=== PATIENT | male | born 1990 | race Caucasian/White ===

== ENCOUNTER 2017-10-02 07:30 | Emergency (ER) | payer OTHER ==
[~2017-10-02] VITALS: Ht 188 cm; Wt 129.9 kg
[~2017-10-02 07:30] MED LIST: ACETAMINOPHEN500 MG PO; BACTRIM,SEPT1 TABLET PO; CIPRO500 MG PO; KEFLEX500 MG PO
[2017-10-02 09:28] LABS: BASOPHIL (%) 0.4 % (0-1); EOSINOPHIL (%) 0.7 % (0-5); EOSINOPHIL COUNT 0.1 K/uL (0-0.3); HEMATOCRIT 40.9 % (38.0-50.0); HEMOGLOBIN 14.4 G/DL (12.5-16.6); IMMATURE GRANULOCYTE (%) 0.7 % (0.0-0.7); LYMPHOCYTE (%) 22.7 % (15-42); LYMPHOCYTE COUNT 1.6 K/uL (1.0-2.8); MCH 30.8 PG (29.0-34.0); MCHC 35.2 G/DL (30.0-36.0); MCV 87.4 FL (86-99); MONOCYTE (%) 6.4 % (3-12); MONOCYTE COUNT 0.5 K/uL (0-0.8); NEUTROPHIL (%) 69.1 % (45-76); PLATELET COUNT 154 K/uL (156-360); RBC DIS.WIDTH-CV 11.9 % (11.8-14.6); RBC DIS.WIDTH-SD 37.9 % (39-53); RED BLOOD COUNT 4.68 M/uL (4.00-5.50); WHITE BLOOD COUNT 7.2 K/uL (4.1-10.2)
[2017-10-02 09:41] LABS: ALBUMIN 4.7 g/dL (3.2-4.8)
[2017-10-02 09:42] LABS: CHLORIDE 104 mEq/L (99-109); POTASSIUM 4.1 mEq/L (3.7-5.4); SODIUM 138 mEq/L (136-147)
[2017-10-02 09:44] LABS: GLUCOSE 106 mg/dL (70-99); TOTAL PROTEIN 7.3 g/dL (6.4-8.3)
[2017-10-02 09:46] LABS: TOTAL BILIRUBIN 0.6 mg/dL (0.0-1.0)
[2017-10-02 09:47] LABS: ALKALINE PHOSPHATASE 72 IU/L (3-129)
[2017-10-02 09:48] LABS: GFR ESTIMATE (CALCULATED) > 59 mL/min/ (58.99-99999)
[2017-10-02 09:49] LABS: AST (GOT) 15 IU/L (2-34); UREA NITROGEN (BUN) 14 mg/dL (9-23)
[2017-10-02 09:50] LABS: ALT (GPT) 31 IU/L (3-49)
[2017-10-02 09:51] LABS: LIPASE 16 U/L (1.0-51.0)
[2017-10-02 10:11] LABS: APPEARANCE CLEAR ((CLEAR)); BILIRUBIN NEGATIVE; BLOOD NEGATIVE; COLOR YELLOW ((YELLOW)); GLUCOSE (STRIP) NEGATIVE; KETONES NEGATIVE; LEUKOCYTES NEGATIVE; NITRITE NEGATIVE; PROTEIN (STRIP) NEGATIVE; SPECIFIC GRAVITY 1.018 (1.000-1.030); UROBILINOGEN 0.2 MG/DL (0.2-1.0)
[2017-10-02] MEDS ORDERED: PROTONIX40 MG PO (11:00)
[2017-10-02 11:19] VITALS: BP 98/52
== END 2017-10-02 11:26 | disposition home or self-care (01) ==
LOC: EME 07:30
PROVIDERS: Emergency Medicine
DX: K29.70 Gastritis, unspecified, without bleeding (principal); K40.90 Unilateral inguinal hernia, without obstruction or gangrene, not specified as recurrent
CPT/HCPCS: 74177; 80053; 81003; 83690; 85025; 99281; 99285; J2405; J3010; J7030